=== PATIENT | male | born 1950 | race Caucasian/White ===

== ENCOUNTER → 2019-06-02 07:51 | Outpatient (CLI) | payer MEDICARE ==
[~2019-06-02 07:51] MED LIST: ALBUTEROL SULF8.5 GM INH; CELEXA20 MG PO; COMBIVENT RESPIM4 GM; HYDROCODON-ACE1 EA10 PO; IPRAT-ALBUT 0.5-3 ML UPD; OMNICEF300 MG PO; PRAVASTATIN SOD10 MG PO; PREDNISONE10 MG PO; ZANTAC300 MG PO; ZITHROMAX500 MG PO
[2019-06-03 11:10] LABS: ANA REFLEX - ANTICHROMATIN ABS 0.2 AI (0.0-0.9); ANA REFLEX - CENTROMERE B ABS <0.2 AI (0.0-0.9); ANA REFLEX - DBL STRANDED DNA <1 IU/mL (0-9); ANA REFLEX - DIRECT Positive (Negative); ANA REFLEX - JO-1 AB <0.2 AI (0.0-0.9); ANA REFLEX - RNP ANTIBODIES <0.2 AI (0.0-0.9); ANA REFLEX - SCL-70 <0.2 AI (0.0-0.9); ANA REFLEX - SJOGRENS AB SSA 0.3 AI (0.0-0.9); ANA REFLEX - SJOGRENS AB SSB <0.2 AI (0.0-0.9)
[2019-06-12 13:52] VITALS: BMI 24.4
== END | disposition home or self-care (01) ==
LOC: D.CT 05-31 13:00 → D.LAB 07:51 → D.CT 09:30
PROVIDERS: ATTEND Internal Medicine Pulmonary Disease
DX: R07.9 Chest pain, unspecified (principal); J44.9 Chronic obstructive pulmonary disease, unspecified

== ENCOUNTER 2019-06-11 22:27 | Inpatient (IN) | payer MEDICARE, MEDICAID ==
[~2019-06-11] VITALS: Ht 185.4 cm; Wt 84.1 kg
[2019-06-11] MEDS ORDERED: ZANTAC300 MG PO (22:37)
[2019-06-11] MEDS ORDERED: PRAVASTATIN SOD10 MG PO (22:37)
[2019-06-11] MEDS ORDERED: HYDROCODON-ACE1 EA10 PO (22:38)
[2019-06-11] MEDS ORDERED: CELEXA20 MG PO (22:38)
[2019-06-11] MEDS ORDERED: ALBUTEROL SULF8.5 GM INH (22:38)
[2019-06-11] MEDS ORDERED: IPRAT-ALBUT 0.5-3 ML UPD (22:38)
[2019-06-11 22:45] LABS: BASOPHILS 0.1 % (0-2); HEMATOCRIT 40.5 % (42.0-54.0); HEMOGLOBIN 13.4 g/dL (13.5-17.5); LYMPHOCYTES 9.5 % (15-50); MCH 32.1 pg (26.0-34.0); MCHC 33.1 g/dL (31.0-37.0); MCV 96.9 fL (80.0-100.0); MEAN PLATELET VOLUME 8.3 fL (7.4-10.4); MONOCYTES 10.7 % (2-11); NEUTROPHILS 77.7 % (40-80); PLATELET COUNT 222 10x3/uL (130-400); RBC 4.18 10x6/uL (4.20-6.10); RDW 13.5 % (11.5-14.5); WBC 13.4 10x3/uL (4.8-10.8)
[2019-06-11 22:52] LABS: APTT 25.1 SECONDS (22.8-39.4); CALC OSMOLALITY 272 mosm/kg (275-300); CALCIUM 9.4 mg/dL (8.5-10.1); CARBON DIOXIDE 34.9 mmol/L (21.0-32.0); CHLORIDE - SERUM 98 mmol/L (98-107); CREATININE - SERUM 1.1 mg/dL (0.6-1.3); GLUCOSE 122 mg/dL (74-106); INR 0.98 (0.85-1.17); POTASSIUM - SERUM 4.3 mmol/L (3.5-5.1); PROTIME 12.5 SECONDS (11.6-15.0); SODIUM 135 mmol/L (136-145); UREA NITROGEN 17 mg/dL (7-18); eGFR NON AFRICAN AMERICAN 70 mL/min (90-120)
[2019-06-11 23:09] LABS: ALBUMIN 3.5 g/dL (3.4-5.0); ALKALINE PHOSPHATASE 85 U/L (46-116); ALT (SGPT) 31 U/L (10-68); BILIRUBIN - TOTAL 0.58 mg/dL (0.2-1.3); CKMB 1.1 U/L (0.0-3.6); CREATINE KINASE 18 UL (21-232); MAGNESIUM - SERUM 1.9 mg/dL (1.8-2.4); PRO BNP 125 pg/mL (0-125)
[2019-06-11 23:10] LABS: TROPONIN-I < 0.017 ng/mL (0.000-0.060)
[2019-06-12] MEDS ORDERED: COMBIVENT RESPIM4 GM (01:28)
[2019-06-12 01:36] VITALS: BP 150/86; BMI 24.5
[2019-06-12 04:18] VITALS: BP 99/58
--- NOTE | 2019-06-12 07:05 | NUR ---
PT RESTING PEACEFULLY, WOKE EASILY WHEN I ENTERED. REQUESTED CUP OF COFFEE (PROVIDED). LOWERED BED BACK TO GROUND LEVEL PT HAD ACCIDENTLY GOT IT UP VERY HIGH. NO COMPLAINTS/CONCERNS, ALL QUESTIONS ANSWERD. NO FAMILY PRESENT AT THIS TIME,. CL IN REACH, SRX2, BED LOW/LOCKED
[2019-06-12 09:10] VITALS: BP 126/80
[2019-06-12 12:00] VITALS: BP 122/77; BP 126/80
[2019-06-12 13:19] LABS: % SATURATION 23 % (15-55); IRON 53 ug/dl (35-150); TOTAL IRON BIND CAPACITY 229 ug/dl (260-445); UNSAT IRON BIND CAPACITY 176 ug/dl (150-375)
--- NOTE | 2019-06-12 13:34 | NUR ---
PT HAS BEEN QUIET TODAY. WEARS HIS O2, HAS NO COMPLAINTS OR CONCERNS. NO QUESTIONS. NO FAMILY MEMBERS AT BEDSIDE, BUT SOME HAVE CALLED AND STATED THEY WILL BE BY TO VISIT. CL IN REACH, SRX2.
[2019-06-12 13:44] LABS: CKMB 1.2 U/L (0.0-3.6); CREATINE KINASE 16 UL (21-232); FERRITIN 353 ng/mL (3-244); TROPONIN-I < 0.017 ng/mL (0.000-0.060)
[2019-06-12 13:52] VITALS: Ht 185.4 cm; Wt 84.1 kg
[2019-06-12 16:00] VITALS: BP 121/82
[2019-06-12 17:42] LABS: CKMB 1.7 U/L (0.0-3.6); CREATINE KINASE 21 UL (21-232); TROPONIN-I < 0.017 ng/mL (0.000-0.060)
--- NOTE | 2019-06-12 18:31 | NUR ---
PT AWAKE AND ORIENTED. NO COMPALINTS OR CONCERNS, RESTING COMFORTABLY. CL IN REACH, SRX2.
[2019-06-12 20:30] VITALS: BP 129/87
[2019-06-13 02:45] LABS: BASOPHILS 0 % (0-2); EOSINOPHILS 0 % (0-7); HEMATOCRIT 37.9 % (42.0-54.0); HEMOGLOBIN 12.7 g/dL (13.5-17.5); IMMATURE GRANULOCYTES 0.7 % (0-5); LYMPHOCYTES 5.7 % (15-50); MCH 31.8 pg (26.0-34.0); MCHC 33.5 g/dL (31.0-37.0); MEAN PLATELET VOLUME 8.7 fL (7.4-10.4); MONOCYTES 6.7 % (2-11); NEUTROPHILS 86.9 % (40-80); PLATELET COUNT 240 10x3/uL (130-400); RDW 13.3 % (11.5-14.5); WBC 13.6 10x3/uL (4.8-10.8)
[2019-06-13 02:46] LABS: CALCIUM 9.1 mg/dL (8.5-10.1); CARBON DIOXIDE 28.3 mmol/L (21.0-32.0); CHLORIDE - SERUM 102 mmol/L (98-107); GLUCOSE 143 mg/dL (74-106); SODIUM 136 mmol/L (136-145)
[2019-06-13 02:48] LABS: CALC OSMOLALITY 276 mosm/kg (275-300); UREA NITROGEN 22 mg/dL (7-18)
[2019-06-13 02:49] LABS: CREATININE - SERUM 0.8 mg/dL (0.6-1.3); eGFR NON AFRICAN AMERICAN > 90 mL/min (90-120)
[2019-06-13 02:57] LABS: MCV 94.8 fL (80.0-100.0)
--- NOTE | 2019-06-13 07:20 | NUR ---
RECIEVE REPORT. ALERT AND ORIENTED X4. SITTING UP IN BED. DENIES ANY NEEDS AT THIS TIME. CONTINUE PLAN OF CARE AND SAFETY PRECAUTIONS.
[2019-06-13 09:14] VITALS: BP 116/72
[2019-06-13 11:02] LABS: APPEARANCE CLEAR (CLEAR); BILIRUBIN NEGATIVE (NEGATIVE); COLOR YELLOW (YELLOW); GLUCOSE NEGATIVE (NEGATIVE); KETONE NEGATIVE (NEGATIVE); NITRITE NEGATIVE (NEGATIVE); PROTEIN NEGATIVE (NEGATIVE); UROBILINOGEN NORMAL (NORMAL)
[2019-06-13 12:47] VITALS: BP 124/77
--- NOTE | 2019-06-13 15:02 | NUR ---
RESTING IN BED WITH EYES CLOSED. NO SIGNS OF DISTRESS. CONTINUE PLAN OF CARE AND SAFETY PRECAUTIONS.
--- NOTE | 2019-06-13 18:20 | NUR ---
ALERT AND ORIENTED X4. REPORTS BED BEING TOO HARD FOR CHRONIC BACK PAIN. EGG CRATE PLACED ON MATTRESS AND LINEN CHANGE COMPLETE. CONTINUE PAIN MANAGEMENT ORDERED. DENIES ANY OTHER NEEDS. CONTINUE PLAN OF CARE AND SAFETY PRECAUTIONS.
[2019-06-13 18:21] VITALS: BP 138/90
[2019-06-13 20:00] VITALS: BP 103/61
[2019-06-14] VITALS: BP 131/83
[2019-06-14 04:00] VITALS: BP 126/68
[2019-06-14 05:25] LABS: BASOPHILS 0.1 % (0-2); EOSINOPHILS 0 % (0-7); HEMATOCRIT 37.7 % (42.0-54.0); HEMOGLOBIN 12.3 g/dL (13.5-17.5); IMMATURE GRANULOCYTES 0.9 % (0-5); LYMPHOCYTES 8.2 % (15-50); MCH 31.3 pg (26.0-34.0); MCHC 32.6 g/dL (31.0-37.0); MCV 95.9 fL (80.0-100.0); MEAN PLATELET VOLUME 8.5 fL (7.4-10.4); MONOCYTES 7.7 % (2-11); NEUTROPHILS 83.1 % (40-80); PLATELET COUNT 251 10x3/uL (130-400); RBC 3.93 10x6/uL (4.20-6.10); RDW 13.5 % (11.5-14.5); WBC 12.5 10x3/uL (4.8-10.8)
[2019-06-14 06:04] LABS: CALC OSMOLALITY 283 mosm/kg (275-300); CALCIUM 8.9 mg/dL (8.5-10.1); CARBON DIOXIDE 31.3 mmol/L (21.0-32.0); CHLORIDE - SERUM 104 mmol/L (98-107); CREATININE - SERUM 0.9 mg/dL (0.6-1.3); GLUCOSE 102 mg/dL (74-106); POTASSIUM - SERUM 3.9 mmol/L (3.5-5.1); SODIUM 141 mmol/L (136-145); UREA NITROGEN 21 mg/dL (7-18); eGFR NON AFRICAN AMERICAN 89 mL/min (90-120)
--- NOTE | 2019-06-14 07:20 | NUR ---
RECIEVE REPORT. ALERT AND ORIENTED X4. SITTING UP IN CHAIR. SON AT BEDSIDE. ASKING ABOUT POSSIBLE DISCHARGE. INFORM NO DISCHARGE HAS BEEN DISCUSSED AT THIS TIME. DENIES ANY OTHER NEEDS. CONTINUE PLAN OF CARE AND SAFETY PRECAUTIONS.
[2019-06-14 07:38] VITALS: BP 118/72
[2019-06-14 11:24] VITALS: BP 121/75
--- NOTE | 2019-06-14 12:08 | NUR ---
ALERT AND ORIENTED X4. SITTING UP IN CHAIR. OXYGEN ON. DENIES ANY NEEDS AT THIS TIME. CONTINUE PAIN MANAGEMENT AND PLAN OF CARE.
--- NOTE | 2019-06-14 13:57 | NUR ---
Nutrition Follow-up: Pt sitting in chair eating lunch at time of visit. Reports eating majority of breakfast this AM. C/o pain 2/2 thrush; reports nurse aware. Drinking Boost. Diet: Cardiac, Boost TID PO intake: 48% avg (06/12-06/13) No new wt Last BM: 06/13 Labs reviewed Meds noted: Solumedrol, Florastor -Continue current diet as tolerated. -RD following.
[2019-06-14 15:06] VITALS: BP 124/78
[2019-06-14] MEDS ORDERED: ZITHROMAX500 MG PO (17:12)
[2019-06-14] MEDS ORDERED: OMNICEF300 MG PO (17:12)
[2019-06-14] MEDS ORDERED: PREDNISONE10 MG PO (17:13)
--- NOTE | 2019-06-14 18:19 | NUR ---
ALERT AND ORIENTED X4. SITTING UP IN CHAIR. DAUGHTER AT BEDSIDE. PORTABLE OXYGEN BROUGHT FROM HOME. DC RT AC IV TIP INTACT. DISCHARGE INSTRUCTIONS GIVEN VERBALLY AND WRITTEN. DISCHARGE PAPERS SIGNED ON CHART. ESCORT TO RIDE VIA WHEELCHAIR. REMAINS FREE FROM INJURY.
--- NOTE | 2019-06-15 08:36 | MORECARE ---
CASE MANAGEMENT DISCHARGE SUMMARY PATIENT: KIRSTIE CANTU UNIT: [id number] ADM DATE: 06/11/19 AGE: 68 : 48 SEX: M ROOM/BED: D.2112 AUTHOR: JUN MCFARLAND PHYSICIAN: REFERRING PHYSICIAN: ROMARIO ALTAMIRANO MD DATE OF SERVICE: 06/15/19 Discharge Plan Patient Name: KIRSTIE [facility]ANTU [facility] [facility] 1950 Planned Disposition: Home Anticipated Discharge Date: 06/14/19 Discharge Date: 06/14/2019 Expected LOS: 3 Initial Reviewer: [email or web address] Initial Review Date: 06/15/2019 Generated: 06/15/19 9:35 am Patient Name: KIRSTIE CANTU Page [id number] at 0836 All edits/amendments must be made on the electronic document DICTATION DATE: 06/15/19834 AEROSPACE QUALITY ENGINEER: MARCIAL 06/15/19834 RPT#: [id number] DC DATE:06/14/19 STATUS: DIS IN [facility] [address] [place] [address] END OF REPORT
== END 2019-06-14 18:21 | disposition home or self-care (01) | DRG 193 ==
LOC: D.ER 22:27 → D.M2 23:40
PROVIDERS: Emergency Medicine; ADMIT Internal Medicine Nephrology; ATTEND Internal Medicine Nephrology
DX: J18.9 Pneumonia, unspecified organism (principal); J96.02 Acute respiratory failure with hypercapnia; J96.21 Acute and chronic respiratory failure with hypoxia; E87.1 Hypo-osmolality and hyponatremia; D64.9 Anemia, unspecified; I10 Essential (primary) hypertension; E78.5 Hyperlipidemia, unspecified; I25.10 Atherosclerotic heart disease of native coronary artery without angina pectoris; K21.9 Gastro-esophageal reflux disease without esophagitis; J43.9 Emphysema, unspecified; M85.88 Other specified disorders of bone density and structure, other site; R04.0 Epistaxis; F32.9 Major depressive disorder, single episode, unspecified; E11.51 Type 2 diabetes mellitus with diabetic peripheral angiopathy without gangrene; Z87.891 Personal history of nicotine dependence